=== PATIENT | female | born 1980 | race Caucasian/White ===

== ENCOUNTER 2024-02-07 07:40 | Outpatient (CLI) | payer OTHER ==
[~2024-02-07 07:40] MED LIST: ACID CONTROL20 MG; ANTIVERT25 M1 PO; ATROVENT HFA12.9 GM; BUDESONIDE0.5 MG/2 M; DOXYCYCLINE HY100 MG PO; DULERA 200 MCG/13 GM; INTAL20 MG/2 ML; IPRATROPIUM0.2 MG/ML; LEVAQUIN750 MG PO; MEDROLPACK PO; MUCUS RELIEF600 MG; NASONEX17 GM NS; PREDNISONE20 MG; PROVENTIL3 ML/2.5 M; RAYOS5 MG; SINGULAIR 10MG10 MG; TESSALON200 MG PO; TUSSIONEX PENNKI5 ML PO; ZITHROMAX TRI-500 MG
== END 2024-02-07 07:48 | disposition home or self-care (01) ==
LOC: MAMO-SONO 07:40
PROVIDERS: ATTEND Obstetrics & Gynecology
DX: N60.11 Diffuse cystic mastopathy of right breast (principal); N60.12 Diffuse cystic mastopathy of left breast